=== PATIENT | male | born 1950 | race African-American/Black ===

== ENCOUNTER 2018-10-23 01:10 | Emergency (ER) | payer MEDICARE, OTHER, MEDICAID ==
[~2018-10-23] VITALS: Ht 182.9 cm; Wt 82.0 kg
[~2018-10-23 01:10] MED LIST: AMLO10TA80 PO; ATEN50TA PO
[2018-10-23] MEDS ORDERED: ASPIRIN 81MG TABLET PO ONE (01:30)
[2018-10-23 01:59] LABS: BASOPHILS % 0.7 % (0.0-2.0); HEMATOCRIT. 48.2 % (42.0-52.0); HEMOGLOBIN. 16.3 g/dL (14.0-18.0); LYMPHOCYTES % 37.4 % (20.0-50.0); MEAN CORPUSCULAR HEMOGLOBIN 32.3 pg (28.0-32.0); MEAN CORPUSCULAR VOLUME 95.5 fL (80.0-94.0); MEAN PLATELET VOLUME 8.6 fl (7.4-10.4); MONOCYTES % 12.8 % (2.0-8.0); NEUTROPHILS % 47.1 % (40.0-76.0); PLATELET 165 x1000/uL (130-400); RED BLOOD CELL COUNT 5.05 mill/uL (4.7-6.1); RED CELL DISTRIBUTION WIDTH 13.5 % (11.6-14.6)
[2018-10-23 02:04] LABS: CHLORIDE 105 mEq/L (98-107)
[2018-10-23 05:56] VITALS: BP 151/92
== END 2018-10-23 06:15 | disposition short-term general hospital (02) ==
LOC: ER 01:10
DX: I10 Essential (primary) hypertension (principal); Z02.89 Encounter for other administrative examinations; Z86.73 Personal history of transient ischemic attack (TIA), and cerebral infarction without residual deficits; Z79.82 Long term (current) use of aspirin
CPT/HCPCS: 36415; 71045; 83880; 84484; 85379; 93005; 99285